=== PATIENT | male | born 1960 | race Hispanic/Latino ===

== ENCOUNTER → 2022-01-11 | Outpatient (CLI) | payer OTHER | END | disposition home or self-care (01) | LOC: SHCH 08:18 | PROVIDERS: ATTEND Internal Medicine Cardiovascular Disease | DX: I48.0 Paroxysmal atrial fibrillation (principal) | CPT/HCPCS: 93306 ==

== ENCOUNTER → 2022-03-04 | Outpatient (CLI) | payer OTHER | END | disposition home or self-care (01) | LOC: RAH 13:09 | PROVIDERS: ATTEND Internal Medicine Cardiovascular Disease | DX: Z13.6 Encounter for screening for cardiovascular disorders (principal); I51.5 Myocardial degeneration | CPT/HCPCS: 75571 ==

== ENCOUNTER 2022-04-04 12:28 | Emergency (ER) | payer OTHER ==
[~2022-04-04] VITALS: Ht 170.2 cm; Wt 99.8 kg
[2022-04-04 12:35] VITALS: BP 153/84
[2022-04-04] MEDS ORDERED: IBUP-2070 PO (13:45)
== END 2022-04-04 15:45 | disposition home or self-care (01) ==
LOC: EDH 12:28
DX: Z04.1 Encounter for examination and observation following transport accident (principal); I10 Essential (primary) hypertension; E78.00 Pure hypercholesterolemia, unspecified; V49.9XXA Car occupant (driver) (passenger) injured in unspecified traffic accident, initial encounter; Y93.89 Activity, other specified; Y92.410 Unspecified street and highway as the place of occurrence of the external cause; Y99.8 Other external cause status
CPT/HCPCS: 99282

== ENCOUNTER → 2022-05-06 | Outpatient (CLI) | payer OTHER ==
[~2022-05-06] MED LIST: IBUP-2070 PO; REGADENOSON 0.4 MG/5 ML PF SYG IVP ONE
== END | disposition home or self-care (01) ==
LOC: SHCH 08:11
PROVIDERS: ATTEND Internal Medicine Cardiovascular Disease
DX: R93.1 Abnormal findings on diagnostic imaging of heart and coronary circulation (principal); I10 Essential (primary) hypertension; E78.00 Pure hypercholesterolemia, unspecified; Z79.899 Other long term (current) drug therapy
CPT/HCPCS: 78452; 96374; 93017; J2785; A9500 ×2

== ENCOUNTER → 2023-07-17 | Outpatient (CLI) | payer OTHER ==
[~2023-07-17] MED LIST changes: -REGADENOSON 0.4 MG/5 ML PF SYG IVP ONE
[2023-07-17 22:25] VITALS: PULSE 58; RESP 26
[2023-07-17 23:00] VITALS: PULSE 56; RESP 20
[2023-07-17 23:30] VITALS: PULSE 58; RESP 16
[2023-07-18] VITALS (11 sets, daily range): PULSE 56–68; RESP 16–20
== END | disposition home or self-care (01) ==
LOC: SLP 20:34
PROVIDERS: ATTEND Internal Medicine Cardiovascular Disease
DX: G47.33 Obstructive sleep apnea (adult) (pediatric) (principal)
CPT/HCPCS: 95810

== ENCOUNTER → 2023-08-26 | Outpatient (CLI) | payer OTHER ==
[2023-08-26 21:43] VITALS: PULSE 60; RESP 16
[2023-08-26 22:15] VITALS: PULSE 53; RESP 16
[2023-08-26 22:33] VITALS: PULSE 61; RESP 16
[2023-08-26 22:52] VITALS: PULSE 56; RESP 14
[2023-08-26 23:06] VITALS: PULSE 54; RESP 16
[2023-08-26 23:31] VITALS: PULSE 52; RESP 17
[2023-08-27] VITALS (11 sets, daily range): PULSE 50–59; RESP 12–19
== END | disposition home or self-care (01) ==
LOC: SLP 20:15
PROVIDERS: ATTEND Internal Medicine Cardiovascular Disease
DX: G47.33 Obstructive sleep apnea (adult) (pediatric) (principal)
CPT/HCPCS: 95811